=== PATIENT | female | born 1955 | race Caucasian/White ===

== ENCOUNTER 2017-08-02 17:48 | Inpatient (IN) | payer SELFPAY ==
[~2017-08-02] VITALS: Ht 162.6 cm; Wt 63.0 kg
[2017-08-02] MEDS ORDERED: ALBUTEROL SULF 2.5 MG/0.5ML(0.5%) NEB SOLN NEB ONE (18:30)
[2017-08-02] MEDS ORDERED: IPRATROPIUM BROM 0.5 MG/2.5ML INH SOL NEB ONE (18:30)
[2017-08-02 19:41] LABS: Basophils # (auto) 0.1 uL; Basophils % (auto) 0.8 % (0.0-2.0); Eosinophils # (auto) 0.1 uL; Eosinophils % (auto) 1.2 % (0.0-7.0); Hematocrit 47.3 % (36.0-46.0); Lymphocytes # (auto) 1.3 uL; Lymphocytes % (auto) 14.4 % (10.0-50.0); Mean Corpuscular Hemoglobin 27.2 pg (28.0-32.0); Mean Corpuscular Hgb Conc. 31.7 g/dL (32.0-36.0); Mean Corpuscular Volume 85.9 fL (80.0-100.0); Monocytes % (auto) 10.4 % (0.0-12.0); Neutrophils # (auto) 6.8 uL; Neutrophils % (auto) 73.2 % (37.0-80.0); Nucleated Red Blood Cells % 0.4 %; Platelet Count (auto) 201 10^3/uL (140-450); Red Blood Cells 5.51 10^6/uL (4.0-5.20); White Blood Cell 9.2 10^3/uL (4.4-10.8)
[2017-08-02 19:46] LABS: Calcium 7.5 mg/dL (8.5-10.1); Potassium 3.9 mmol/L (3.5-5.1)
[2017-08-02 19:49] LABS: BUN/Creatinine Ratio 14.3; Bilirubin, Total 1.2 mg/dL (0.2-1.0); Total Protein 7.5 g/dL (6.4-8.2)
[2017-08-02 21:32] LABS: Urine Bacteria MOD /hpf (None Seen); Urine Blood TRACE /uL (Negative); Urine Specific Gravity 1.011 (1.001-1.035); Urine WBC 27 /hpf (0 - 5)
[2017-08-03] VITALS (8 sets, daily range): BP systolic 114–131; BP diastolic 66–77
[2017-08-03] MEDS ORDERED: ONDANSETRON HCL 4 MG/2 ML VIAL IV PRN (02:30)
[2017-08-03] MEDS ORDERED: FUROSEMIDE 20 MG/2 ML VIAL IV ONE (02:30)
[2017-08-03] MEDS ORDERED: MORPHINE SULFATE 4 MG/ML SYR/VIAL IV PRN (02:30)
[2017-08-03] MEDS ORDERED: ACETAMINOPHEN 500 MG TAB PO PRN (02:30)
[2017-08-03] MEDS ORDERED: HYDROcodone-ACET 5/325MG TAB PO PRN (02:30)
[2017-08-03] MEDS ORDERED: NITROGLYCERIN 0.4 MG SL TAB SL PRN (02:30)
[2017-08-03] MEDS ORDERED: FUROSEMIDE 40 MG/4 ML VIAL IV ONE (02:45)
[2017-08-03] MEDS: AZITHROMYCIN 500MG/ 250ML 250 ML IV SCH (03:15)
[2017-08-03] MEDS: cefTRIAXone 1GM/10ml IVPUSH 10 ML IV SCH (03:15)
[2017-08-03 04:33] LABS: Basophils # (auto) 0 uL; Basophils % (auto) 0.5 % (0.0-2.0); Eosinophils # (auto) 0.1 uL; Eosinophils % (auto) 0.6 % (0.0-7.0); Hemoglobin 14.9 g/dL (12.2-16.2); Lymphocytes # (auto) 1.3 uL; Lymphocytes % (auto) 14.5 % (10.0-50.0); Mean Corpuscular Hemoglobin 26.8 pg (28.0-32.0); Mean Corpuscular Hgb Conc. 31.8 g/dL (32.0-36.0); Mean Corpuscular Volume 84.4 fL (80.0-100.0); Monocytes # (auto) 0.9 uL; Monocytes % (auto) 10.1 % (0.0-12.0); Neutrophils # (auto) 6.5 uL; Neutrophils % (auto) 74.3 % (37.0-80.0); Nucleated Red Blood Cells % 0.2 %; Platelet Count (auto) 210 10^3/uL (140-450); Red Blood Cells 5.57 10^6/uL (4.0-5.20); Red Cell Distribution Width 16.8 % (11.8-14.3); White Blood Cell 8.8 10^3/uL (4.4-10.8)
[2017-08-03 04:52] LABS: BUN/Creatinine Ratio 14.7; Potassium 3.6 mmol/L (3.5-5.1)
[2017-08-03] MEDS ORDERED: INFLUENZA QUAD 2017-2018 0.5 ML SYRG IM ONE (10:00)
[2017-08-03] MEDS ORDERED: PNEUMOCOCCAL VACC POLYS 25 MCG/0.5 ML VIAL IM ONE (10:00)
[2017-08-03] MEDS ORDERED: ALBUTEROL SULF 2.5 MG/0.5ML(0.5%) NEB SOLN NEB PRN (21:15)
[2017-08-04] VITALS (7 sets, daily range): BP systolic 100–117; BP diastolic 47–73
[2017-08-04] MEDS: ALBUTEROL SULF 2.5 MG/0.5ML(0.5%) NEB SOLN NEB SCH ×4 (02:13→19:38)
[2017-08-04] MEDS: IPRATROPIUM BROM 0.5 MG/2.5ML INH SOL NEB SCH ×4 (02:13→19:38)
[2017-08-04] MEDS: cefTRIAXone 1GM/10ml IVPUSH 10 ML IV SCH (03:13)
[2017-08-04] MEDS: AZITHROMYCIN 500MG/ 250ML 250 ML IV SCH (03:41)
[2017-08-04] MEDS: POTASSIUM CHL 20 Meq TABLET PO SCH ×2 (11:44→22:30)
[2017-08-04] MEDS: FUROSEMIDE 20 MG TAB PO SCH (11:44)
[2017-08-04] MEDS: LEVOFLOXACIN 500 MG TAB PO SCH (11:44)
[2017-08-05] MEDS: ALBUTEROL SULF 2.5 MG/0.5ML(0.5%) NEB SOLN NEB SCH ×4 (00:41→20:12)
[2017-08-05] MEDS: IPRATROPIUM BROM 0.5 MG/2.5ML INH SOL NEB SCH ×4 (00:41→20:12)
[2017-08-05] MEDS: cefTRIAXone 1GM/10ml IVPUSH 10 ML IV SCH (02:47)
[2017-08-05] MEDS: FUROSEMIDE 20 MG TAB PO SCH ×3 (05:48→18:08)
[2017-08-05 05:53] VITALS: BP 113/73
[2017-08-05 09:02] VITALS: BP 110/67
[2017-08-05] MEDS: POTASSIUM CHL 20 Meq TABLET PO SCH ×2 (11:40→21:36)
[2017-08-05] MEDS: LEVOFLOXACIN 500 MG TAB PO SCH (11:40)
[2017-08-05] MEDS: AZITHROMYCIN 250 MG TAB PO SCH (11:40)
[2017-08-05 12:03] VITALS: BP 101/48
[2017-08-05 16:01] VITALS: BP 110/50
[2017-08-05] MEDS ORDERED: ALBUTEROL SULF 2.5 MG/0.5ML(0.5%) NEB SOLN ONE (17:39)
[2017-08-05] MEDS ORDERED: IPRATROPIUM BROM 0.5 MG/2.5ML INH SOL ONE (17:39)
[2017-08-05 22:58] VITALS: BP 115/78
[2017-08-06] MEDS: ALBUTEROL SULF 2.5 MG/0.5ML(0.5%) NEB SOLN NEB SCH ×4 (01:06→18:36)
[2017-08-06] MEDS: IPRATROPIUM BROM 0.5 MG/2.5ML INH SOL NEB SCH ×4 (01:06→18:36)
[2017-08-06] MEDS: cefTRIAXone 1GM/10ml IVPUSH 10 ML IV SCH (03:14)
[2017-08-06 06:24] VITALS: BP 116/74
[2017-08-06] MEDS: FUROSEMIDE 20 MG TAB PO SCH ×2 (06:40→17:34)
[2017-08-06 07:54] VITALS: BP 111/57
[2017-08-06] MEDS: POTASSIUM CHL 20 Meq TABLET PO SCH ×2 (10:00→21:22)
[2017-08-06] MEDS: LEVOFLOXACIN 500 MG TAB PO SCH (10:01)
[2017-08-06] MEDS: AZITHROMYCIN 250 MG TAB PO SCH (10:01)
[2017-08-06 11:44] VITALS: BP 106/58
[2017-08-06 16:06] VITALS: BP 103/63
[2017-08-06] MEDS: BUDESONIDE (INHALATION) 0.5 MG/2 ML NEB NEB SCH (18:36)
[2017-08-07] MEDS: cefTRIAXone 1GM/10ml IVPUSH 10 ML IV SCH (03:00)
[2017-08-07] MEDS: FUROSEMIDE 20 MG TAB PO SCH ×2 (06:18→18:04)
[2017-08-07] MEDS: ALBUTEROL SULF 2.5 MG/0.5ML(0.5%) NEB SOLN NEB SCH ×4 (06:27→18:05)
[2017-08-07] MEDS: BUDESONIDE (INHALATION) 0.5 MG/2 ML NEB NEB SCH ×2 (06:27→18:05)
[2017-08-07] MEDS: IPRATROPIUM BROM 0.5 MG/2.5ML INH SOL NEB SCH ×4 (06:27→18:05)
[2017-08-07 08:43] VITALS: BP 101/75
[2017-08-07 09:00] VITALS: BP 102/48
[2017-08-07] MEDS: predniSONE 20 MG TAB PO SCH (09:55)
[2017-08-07] MEDS: LEVOFLOXACIN 500 MG TAB PO SCH (09:55)
[2017-08-07] MEDS: AZITHROMYCIN 250 MG TAB PO SCH (09:55)
[2017-08-07] MEDS: POTASSIUM CHL 20 Meq TABLET PO SCH ×2 (09:55→22:19)
[2017-08-07 13:13] VITALS: BP 108/50
[2017-08-07 17:00] VITALS: BP_SYST 110; BP_SYST 143; BP_DIAS 54; BP_DIAS 63
[2017-08-07 20:00] VITALS: BP 104/56
[2017-08-07 22:00] VITALS: BP 154/46
[2017-08-08] MEDS: cefTRIAXone 1GM/10ml IVPUSH 10 ML IV SCH (03:00)
[2017-08-08 05:17] VITALS: BP 86/43
[2017-08-08] MEDS: FUROSEMIDE 20 MG TAB PO SCH ×2 (06:19→17:40)
[2017-08-08] MEDS: ALBUTEROL SULF 2.5 MG/0.5ML(0.5%) NEB SOLN NEB SCH ×4 (07:43→18:53)
[2017-08-08] MEDS: BUDESONIDE (INHALATION) 0.5 MG/2 ML NEB NEB SCH ×2 (07:43→18:54)
[2017-08-08] MEDS: IPRATROPIUM BROM 0.5 MG/2.5ML INH SOL NEB SCH ×4 (07:43→18:53)
[2017-08-08 09:00] VITALS: BP 93/65
[2017-08-08] MEDS: POTASSIUM CHL 20 Meq TABLET PO SCH ×2 (09:57→21:24)
[2017-08-08] MEDS: predniSONE 20 MG TAB PO SCH (09:57)
[2017-08-08] MEDS: LEVOFLOXACIN 500 MG TAB PO SCH (09:58)
[2017-08-08] MEDS: AZITHROMYCIN 250 MG TAB PO SCH (09:58)
[2017-08-08 13:00] VITALS: BP 124/58
[2017-08-08 13:29] LABS: Calcium 8.8 mg/dL (8.5-10.1); Potassium 4.1 mmol/L (3.5-5.1)
[2017-08-08 16:59] VITALS: BP 110/57
[2017-08-08 23:43] VITALS: BP 114/44
[2017-08-09 04:42] VITALS: BP 105/68
[2017-08-09] MEDS: IPRATROPIUM BROM 0.5 MG/2.5ML INH SOL NEB SCH ×4 (05:42→19:18)
[2017-08-09] MEDS: ALBUTEROL SULF 2.5 MG/0.5ML(0.5%) NEB SOLN NEB SCH ×4 (05:42→19:18)
[2017-08-09] MEDS: FUROSEMIDE 20 MG TAB PO SCH ×2 (05:55→18:11)
[2017-08-09 08:44] VITALS: BP 98/53
[2017-08-09] MEDS: predniSONE 20 MG TAB PO SCH (10:05)
[2017-08-09] MEDS: LEVOFLOXACIN 500 MG TAB PO SCH (10:06)
[2017-08-09] MEDS: POTASSIUM CHL 20 Meq TABLET PO SCH ×2 (10:06→22:06)
[2017-08-09] MEDS: BUDESONIDE (INHALATION) 0.5 MG/2 ML NEB NEB SCH ×2 (10:28→19:18)
[2017-08-09 11:54] VITALS: BP 96/49
[2017-08-09 16:22] VITALS: BP 105/68
[2017-08-09 16:31] VITALS: BP 102/51
[2017-08-09 22:00] VITALS: BP 126/75
[2017-08-10 05:13] VITALS: BP 104/70
[2017-08-10] MEDS: FUROSEMIDE 20 MG TAB PO SCH ×2 (05:47→18:00)
[2017-08-10] MEDS: BUDESONIDE (INHALATION) 0.5 MG/2 ML NEB NEB SCH ×2 (07:28→19:50)
[2017-08-10] MEDS: IPRATROPIUM BROM 0.5 MG/2.5ML INH SOL NEB SCH ×4 (07:30→19:49)
[2017-08-10] MEDS: ALBUTEROL SULF 2.5 MG/0.5ML(0.5%) NEB SOLN NEB SCH ×4 (07:30→19:49)
[2017-08-10 08:42] VITALS: BP 104/70
[2017-08-10 09:00] VITALS: BP 113/64
[2017-08-10] MEDS: LEVOFLOXACIN 500 MG TAB PO SCH (10:05)
[2017-08-10] MEDS: predniSONE 20 MG TAB PO SCH (10:05)
[2017-08-10] MEDS: POTASSIUM CHL 20 Meq TABLET PO SCH ×2 (10:05→21:33)
[2017-08-10 13:00] VITALS: BP 108/60
[2017-08-10 17:25] VITALS: BP 101/48
[2017-08-10 21:30] VITALS: BP 136/96
[2017-08-11 05:00] VITALS: BP 115/66
[2017-08-11] MEDS: ALBUTEROL SULF 2.5 MG/0.5ML(0.5%) NEB SOLN NEB SCH ×3 (05:44→14:19)
[2017-08-11] MEDS: FUROSEMIDE 20 MG TAB PO SCH (05:44)
[2017-08-11] MEDS: IPRATROPIUM BROM 0.5 MG/2.5ML INH SOL NEB SCH ×3 (05:44→14:19)
[2017-08-11 08:00] VITALS: BP 119/82
[2017-08-11 09:00] VITALS: BP 119/82
[2017-08-11] MEDS: BUDESONIDE (INHALATION) 0.5 MG/2 ML NEB NEB SCH (09:36)
[2017-08-11] MEDS: POTASSIUM CHL 20 Meq TABLET PO SCH (09:42)
[2017-08-11] MEDS: predniSONE 20 MG TAB PO SCH (09:42)
[2017-08-11] MEDS: LEVOFLOXACIN 500 MG TAB PO SCH (09:43)
[2017-08-11 13:00] VITALS: BP 126/89
[2017-08-11 17:00] VITALS: BP 121/76
== END 2017-08-11 19:22 | disposition home or self-care (01) | DRG 190 ==
LOC: EDBD 17:48 → ER 17:51 → TELE 17:52 → TELE-CENTR 08-03 04:50 → CENTRAL 08-04 19:35 → TELE-CENTR 08-06 00:30
PROVIDERS: ADMIT Nurse Practitioner Family; ATTEND Internal Medicine Pulmonary Disease
DX: J44.1 Chronic obstructive pulmonary disease with (acute) exacerbation (principal); I50.33 Acute on chronic diastolic (congestive) heart failure; I27.20 Pulmonary hypertension, unspecified; E83.51 Hypocalcemia; Z99.81 Dependence on supplemental oxygen; E44.1 Mild protein-calorie malnutrition; N39.0 Urinary tract infection, site not specified; I11.0 Hypertensive heart disease with heart failure; F17.200 Nicotine dependence, unspecified, uncomplicated; R49.0 Dysphonia; E66.9 Obesity, unspecified; Z88.0 Allergy status to penicillin; Z68.23 Body mass index [BMI] 23.0-23.9, adult
CPT/HCPCS: 36415; 36600; 71010; 71046; 80048; 80053; 81001; 82805; 83605; 83880; 84484; 85025; 87086; 93005; 93306; 94640; 96374; 96375; J2405

== ENCOUNTER 2019-06-14 18:13 | Inpatient (IN) | payer MEDICAID ==
[~2019-06-14] VITALS: Ht 167.6 cm; Wt 74.0 kg
[2019-06-14] MEDS ORDERED: ONDANSETRON HCL 4 MG/2 ML VIAL ONE (18:28)
[2019-06-14] MEDS ORDERED: methylPREDNISolone SOD SUCC 125 MG/2 ML VL IV ONE (18:30)
[2019-06-14] MEDS ORDERED: IPRATROPIUM BROM 0.5 MG/2.5ML INH SOL NEB ONE (18:30)
[2019-06-14] MEDS ORDERED: ETOMIDATE (2MG/ML) 20ML VIAL IV ONE ×2 (18:33→18:45)
[2019-06-14] MEDS ORDERED: SUCCINYLCHOLINE CHLORIDE 20 MG/ML 10ML VIAL IV ONE ×2 (18:33→18:45)
[2019-06-14] MEDS ORDERED: NOREPINEPHRINE 8 MG/250ML KIT 250 ML IV ONE (18:36)
[2019-06-14] MEDS ORDERED: MIDAZOLAM DRIP 50 mg/50mL 50 ML IV ONE (18:36)
[2019-06-14] MEDS: NOREPINEPHRINE 8 MG/250ML KIT 250 ML IV SCH ×2 (18:45→23:16)
[2019-06-14] MEDS: MIDAZOLAM DRIP 50 mg/50mL 50 ML IV SCH ×2 (18:46→21:32)
[2019-06-14] MEDS ORDERED: DOPamine 1600MCG/ML D5W 250 ML IV ONE (18:57)
[2019-06-14] MEDS ORDERED: PHENYLEPHRINE INJ 20 MG in SODIUM CHL 0.9% 250 ML IV SCH (19:05)
[2019-06-14] MEDS: DOPamine 1600MCG/ML D5W 250 ML IV SCH (19:13)
[2019-06-14 19:15] LABS: Eosinophils % (auto) 1.1 % (0.0-7.0)
[2019-06-14 19:18] LABS: Basophils # (auto) 0.1 uL; Basophils % (auto) 0.9 % (0.0-2.0); Eosinophils # (auto) 0.1 uL; Hematocrit 28.8 % (36.0-46.0); Hemoglobin 8.8 g/dL (12.2-16.2); Lymphocytes # (auto) 1.3 uL; Lymphocytes % (auto) 11.5 % (10.0-50.0); Mean Corpuscular Hemoglobin 21.9 pg (28.0-32.0); Mean Corpuscular Hgb Conc. 30.4 g/dL (32.0-36.0); Mean Corpuscular Volume 71.8 fL (80.0-100.0); Monocytes # (auto) 1.3 uL; Monocytes % (auto) 11.8 % (0.0-12.0); Neutrophils # (auto) 8.4 uL; Neutrophils % (auto) 74.7 % (37.0-80.0); Nucleated Red Blood Cells % 2.2 %; Platelet Count (auto) 338 10^3/uL (140-450); Red Blood Cells 4.02 10^6/uL (4.0-5.20); White Blood Cell 11.2 10^3/uL (4.4-10.8)
[2019-06-14 19:21] LABS: Red Cell Distribution Width 26.7 % (11.8-14.3)
[2019-06-14 19:28] LABS: Albumin 2.4 g/dL (3.4-5.0); BUN/Creatinine Ratio 15.6; Calcium 7.8 mg/dL (8.5-10.1); Magnesium 2.5 mg/dL (1.6-2.6); Potassium 3.3 mmol/L (3.5-5.1)
[2019-06-14] MEDS ORDERED: ONDANSETRON HCL 4 MG/2 ML VIAL IV ONE (19:30)
[2019-06-14 19:31] LABS: Urine Bacteria NONE SEEN /hpf (None Seen); Urine Blood Negative /uL (Negative); Urine Specific Gravity 1.018 (1.001-1.035); Urine WBC 203 /hpf (0 - 5)
[2019-06-14 19:31] LABS: Bilirubin, Total 6.4 mg/dL (0.2-1.0); Total Protein 5.8 g/dL (6.4-8.2)
[2019-06-14 19:32] LABS: INR 2.43 (0.9-1.15); Partial Thromboplastin Time 49.2 sec (23.64-32.05)
[2019-06-14 19:33] LABS: Lactic Acid w/Reflex 4.2 mmol/L (0.4-2.0)
[2019-06-14] MEDS ORDERED: SODIUM CHLORIDE 0.9% 500 ML IV ONE (19:50)
[2019-06-14] MEDS ORDERED: cefTRIAXone 1GM/50ML D5W 50 ML IV ONE (20:00)
[2019-06-14] MEDS ORDERED: VANCOMYCIN PER PHARMACY 0 MG IV SCH (20:00)
[2019-06-14] MEDS ORDERED: VANCOMYCIN 1GM/250ML 250 ML IV ONE (20:15)
[2019-06-14 20:30] VITALS: BP 137/53
[2019-06-14] MEDS ORDERED: FUROSEMIDE 40 MG/4 ML VIAL IV ONE (21:15)
[2019-06-14 22:35] VITALS: BP 124/58
[2019-06-15] VITALS (67 sets, daily range): BP systolic 37–133; BP diastolic 12–78
[2019-06-15] MEDS: DOPamine 1600MCG/ML D5W 250 ML IV SCH (00:55)
[2019-06-15] MEDS ORDERED: ONDANSETRON HCL 4 MG/2 ML VIAL IV PRN (01:00)
[2019-06-15] MEDS ORDERED: MORPHINE SULF INJ 2 MG/ML SYRINGE 1ML IV PRN (01:00)
[2019-06-15] MEDS ORDERED: LEVOFLOXACIN 250MG 50 ML IV ONE (01:00)
[2019-06-15] MEDS ORDERED: NITROGLYCERIN 0.4 MG SL TAB SL PRN (01:00)
[2019-06-15] MEDS ORDERED: FUROSEMIDE 40 MG/4 ML VIAL IV ONE (01:15)
[2019-06-15] MEDS: MIDAZOLAM DRIP 50 mg/50mL 50 ML IV SCH (01:24)
[2019-06-15] MEDS ORDERED: VASOPRESSIN 20 UNIT/ML ONE ×2 (02:29)
[2019-06-15] MEDS: VASOPRESSIN 50 UNITS in D5W 5% 247.5 ML IV SCH (02:38)
[2019-06-15] MEDS: NOREPINEPHRINE 8 MG/250ML KIT 250 ML IV SCH (03:08)
[2019-06-15] MEDS ORDERED: PHENYLEPHRINE INJ 20 MG in D5W 5% 250 ML IV SCH (03:30)
[2019-06-15] MEDS ORDERED: ALBUMIN 5% 250 ML IV ONE ×2 (03:30→03:31)
--- NOTE | 2019-06-15 04:00 | NUR ---
PT. ARRIVED VIA GURNEY WITH FORMULA CLERK, BARREL DEDENTING MACHINE OPERATOR, AND X2 RT; PLACED ON BEDSIDE MONITOR AND SPO2 IS IN THE 40'S, RT AT BEDSIDE TROUBLESHOOTING VENTILATOR AND RESP. STATUS; SBP IS IN THE 80'S AND PT. ON MAX X3 PRESSORS-WILL OBTAIN ANOTHER PRESSOR; OGT CONNECTED TO LWIS AND DARK/JOHNSON GASTRIC CONTENT AND WILL CONTINUE TO MONITOR; CARO TO GRAVITY AND HAS 100ML URINE IN BAG-UNINFORMED IF CARO BAG DRAINED PRIOR TO TRANSFER SO WILL ACCOUNT FOR URINE THAT IS DURING MY SHIFT; SEE INTERVENTIONS FOR ASSESSMENT AND IV SPREADSHEET FOR GTTS; WILL CONT. TO MONITOR.
[2019-06-15] MEDS ORDERED: SODIUM CHLORIDE 0.9% 500 ML IV ONE ×2 (04:30→16:30)
[2019-06-15] MEDS: EPINEPHrine HCL 250 ML IV SCH (04:45)
--- NOTE | 2019-06-15 05:10 | NUR ---
NOC RT CONT. AT BEDSIDE PLACING PT. ON PC MODE PER RX AND WAITING TO SEE IF PT. TOLERATES.
[2019-06-15] MEDS ORDERED: VANCOMYCIN PER PHARMACY 0 MG IV SCH (05:15)
[2019-06-15] MEDS ORDERED: PHENYLEPHRINE IV 250 ML IV ONE ×2 (05:37→07:08)
[2019-06-15] MEDS ORDERED: IPRATROPIUM BROM 0.5 MG/2.5ML INH SOL NEB SCH (06:00)
[2019-06-15] MEDS ORDERED: ALBUTEROL SULF 2.5 MG/0.5ML(0.5%) NEB SOLN NEB SCH (06:00)
[2019-06-15 06:27] LABS: Eosinophils # (auto) 0 uL; Hemoglobin 9.4 g/dL (12.2-16.2); Monocytes # (auto) 0.9 uL
[2019-06-15 06:31] LABS: Basophils # (auto) 0.1 uL; Basophils % (auto) 0.4 % (0.0-2.0); Hematocrit 31.4 % (36.0-46.0); Lymphocytes % (auto) 5.2 % (10.0-50.0); Mean Corpuscular Hemoglobin 21.5 pg (28.0-32.0); Mean Corpuscular Hgb Conc. 29.9 g/dL (32.0-36.0); Mean Corpuscular Volume 72.1 fL (80.0-100.0); Monocytes % (auto) 4.4 % (0.0-12.0); Neutrophils # (auto) 17.8 uL; Nucleated Red Blood Cells % 1.7 %; Platelet Count (auto) 428 10^3/uL (140-450); Red Blood Cells 4.35 10^6/uL (4.0-5.20); White Blood Cell 19.8 10^3/uL (4.4-10.8)
[2019-06-15 06:36] LABS: INR 2.25 (0.9-1.15); Partial Thromboplastin Time 39.6 sec (23.64-32.05)
[2019-06-15 06:40] LABS: Red Cell Distribution Width 26.4 % (11.8-14.3)
[2019-06-15 06:43] LABS: BUN/Creatinine Ratio 15.6; Magnesium 2.5 mg/dL (1.6-2.6); Potassium 3.6 mmol/L (3.5-5.1)
--- NOTE | 2019-06-15 07:30 | NUR ---
PT. SPO2 IN 90'S AND CONT. ON PC MODE VENTILATION; REPORT GIVEN TO AM RN; VS STABLE AT THIS TIME.
[2019-06-15] MEDS: fentaNYL Drip 2500mCg/250mlNS 250 ML IV SCH (08:18)
--- NOTE | 2019-06-15 08:45 | NUR ---
VENT CHANGES MADE AT THIS TIME: R.T AT BEDSIDE PATIENT PLACED ON AC 14, 450 VT, 50% FIO2, PEEP +10. CHANGES MADE BY ARMANDO PEREZ. ABG TO BE TAKEN IN 1 HOUR. CONTINUE CARE.
[2019-06-15] MEDS: PHENYLEPHRINE INJ 40 MG in SODIUM CHL 0.9% 250 ML IV SCH (09:00)
--- NOTE | 2019-06-15 09:30 | NUR ---
A- LINE PLACEMENT AT THIS TIME COMPLETED BY Donn PEREZ,[facility] TECHNICAL ARCHITECT AT THIS TIME AT BEDSIDE. PLACED TO LEFT FEMORAL. WILL CONTINUE TO MONITOR BP AT THIS TIME. CONSENT SIGNED BY CHRIS AND DR. SOLORIO. CONTINUE CARE.
[2019-06-15] MEDS ORDERED: SODIUM BICARBONATE 50ML VIAL 50 ML in SOD CHL 0.45% 1,000 ML IV SCH ×2 (10:00→19:15)
--- NOTE | 2019-06-15 10:25 | NUR ---
DR. SOLORIO AT BEDSIDE: ORDERS MD UPDATED ON PT'S STATUS, LABS AND POC FOR TODAY. ORDERS GIVEN AND TO BE CARRIED OUT. WILL CONTINUE TO MONITOR.
[2019-06-15] MEDS ORDERED: PANTOPRAZOLE 40 MG/10 ML VIAL INJ IV ONE (10:45)
[2019-06-15 11:07] LABS: Alcohol, Urine < 3.0 mg/dL (0-5); Amphetamine Screen, Urine NEGATIVE (NEGATIVE); Barbiturate Scree,Urine NEGATIVE (NEGATIVE); Benzodiazephine Screen, Urine NEGATIVE (NEGATIVE); Cannabinoid Screen, Urine NEGATIVE (NEGATIVE); Cocaine Screen, Urine NEGATIVE (NEGATIVE); Opiate Scree,Urine NEGATIVE (NEGATIVE); Phencyclidine Screen, Urine NEGATIVE (NEGATIVE)
[2019-06-15] MEDS: MEROPENEM 1GM IVPB 100 ML IV SCH (12:21)
[2019-06-15 12:54] LABS: Albumin 2.8 g/dL (3.4-5.0)
[2019-06-15 12:58] LABS: Bilirubin, Direct 5.5 mg/dL (0-0.2); Bilirubin, Total 7.2 mg/dL (0.2-1.0); Total Protein 6.1 g/dL (6.4-8.2)
--- NOTE | 2019-06-15 13:00 | NUR ---
DR. ALANIZ AT BEDSIDE: NEPHRO CONSULT MD UPDATED ON PT'S STATUS, CURRENT GTTS AND URINE OUTPUT FOR TODAY. NO ORDERS GIVEN AT THIS TIME. WILL CONTINUE TO MONITOR PATIENT. CONTINUE CARE.
[2019-06-15] MEDS: ALBUTEROL SULF 2.5 MG/0.5ML(0.5%) NEB SOLN NEB SCH ×3 (14:01→22:15)
[2019-06-15] MEDS: IPRATROPIUM BROM 0.5 MG/2.5ML INH SOL NEB SCH ×3 (14:01→22:14)
[2019-06-15] MEDS: ALBUMIN 25% 100 ML IV SCH ×2 (16:00→23:48)
--- NOTE | 2019-06-15 16:00 | NUR ---
EKG TAKEN AT THIS TIME: CHANGE IN STATUS CURRENT HR 137. EKG PLACED IN CHART. WAITING FOR DR. SOLORIO TO CALL BACK. CONTINUE CARE. Addendum: 06/15/19 at 1628 by Makenna Ramos RN RENITA
--- NOTE | 2019-06-15 16:25 | NUR ---
ORDERS FROM DR. SOLORIO UPDATED DR. SOLORIO ON PT'S CURRENT HR 130'S, A.FIB PER EKG. ORDERS GIVEN TO GIVE 500 ML NS BOLUS X1 NOW IV. BOLUS STARTED. MD TO CALL BACK LATER ON TO CHECK ON PATIENT STATUS. INFORMED WEANED OFF EPI GTT TO HELP WITH HR AT THIS TIME.
--- NOTE | 2019-06-15 16:49 | NUR ---
Assessment Pt is a 64 yr old intubated female. Assessment conducted on the phone with son Julien Sanz at [phone]. Prior to admit, pt lives with her mom. Pt receives care giving with family friend Kaden who helps to cook and clean for them. Pt was ambulatory but was extremely weak after d/c after recent d/c from [facility]. Pt's son was unsure of current ADL functioning of the pt. Pt admitted due to "sudden collapse and seizures in the home." Pt's nurse stated that the pt has severe sepsis, and CHF exacerbation. Pt's son, Julien, stated that the Dr recently called to let the family know that the prognosis is not good. Julien and his family are coming to the hospital shortly. Pt receives SS income and does not have and AD on file. Further needs will be assessed closer to d/c. Addendum: 06/15/19 at 1657 by CEE LIMA SS Amended: Links added.
--- NOTE | 2019-06-15 19:10 | NUR ---
RICHARD DRAWN AND REPORTED TO COUNTRY SINGER CHRIS. PER COUNTRY SINGER HE WILL COME ASSESS PT.
--- NOTE | 2019-06-15 19:14 | NUR ---
PER MALE MODEL SALBINO INCREASE RR VENT RATE TO 20.
[2019-06-15] MEDS ORDERED: SODIUM BICARBONATE 8.4 % INJ 50ML VIAL IV ONE (19:15)
--- NOTE | 2019-06-15 19:44 | NUR ---
VENT ORDERS RECEIVED. AC 20 VT 500 +10 100% FIO2 PER AGRICULTURAL LOAN OFFICER CHRIS
[2019-06-15] MEDS ORDERED: SODIUM BICARBONATE 8.4% INJ 50ML SYRINGE ONE (19:48)
--- NOTE | 2019-06-15 20:00 | NUR ---
REPORT RECEIVED AND ASSUMED CARE; SEE INTERVENTIONS FOR ASSESSMENT; SEE IV SPREADSHEET FOR DRIPS; PT. HR IS IN THE 130'S AND IN A-FIB/A-FLUTTER; AWARE AND HAD RX'D AN NS BOLUS OF 500ML ABOUT 1 1/2 HRS AGO; PT. HAS AN SAMANTHA AND SBP WNL AND PT. ON MULTIPLE PRESSORS; WILL CONT. TO MONITOR.
[2019-06-15 20:36] LABS: BUN/Creatinine Ratio 17.2; Calcium 7.6 mg/dL (8.5-10.1); Potassium 4.9 mmol/L (3.5-5.1)
[2019-06-15] MEDS: PANTOPRAZOLE 40 MG/10 ML VIAL INJ IV SCH (22:24)
[2019-06-15] MEDS: LINEZOLID 600MG/300ML 300 ML IV SCH (22:25)
[2019-06-15] MEDS ORDERED: DIGOXIN (250MCG/ML) 2 ML AMPULE IV ONE (23:15)
[2019-06-16] VITALS (104 sets, daily range): BP systolic 33–219; BP diastolic 11–106
[2019-06-16] MEDS ORDERED: LEVOFLOXACIN 250MG 50 ML IV SCH
[2019-06-16] MEDS: MEROPENEM 1GM IVPB 100 ML IV SCH ×3 (00:20→22:46)
[2019-06-16] MEDS ORDERED: DIGOXIN (250MCG/ML) 2 ML AMPULE IV ONE (01:50)
[2019-06-16] MEDS: ALBUTEROL SULF 2.5 MG/0.5ML(0.5%) NEB SOLN NEB SCH ×6 (02:00→22:25)
[2019-06-16] MEDS: IPRATROPIUM BROM 0.5 MG/2.5ML INH SOL NEB SCH ×6 (02:11→22:25)
[2019-06-16 04:16] LABS: Hemoglobin 9.4 g/dL (12.2-16.2)
[2019-06-16 04:25] LABS: Mean Corpuscular Hemoglobin 21.9 pg (28.0-32.0); Mean Corpuscular Hgb Conc. 26.8 g/dL (32.0-36.0); Mean Corpuscular Volume 81.6 fL (80.0-100.0); Platelet Count (auto) 342 10^3/uL (140-450); Red Blood Cells 4.29 10^6/uL (4.0-5.20); White Blood Cell 22.4 10^3/uL (4.4-10.8)
[2019-06-16 04:35] LABS: Albumin 3.2 g/dL (3.4-5.0); Calcium 7.3 mg/dL (8.5-10.1)
[2019-06-16 04:40] LABS: BUN/Creatinine Ratio 17.3; Total Protein 6.8 g/dL (6.4-8.2)
[2019-06-16 04:42] LABS: Potassium 4.4 mmol/L (3.5-5.1)
[2019-06-16 04:50] LABS: Red Cell Distribution Width 27.1 % (11.8-14.3)
[2019-06-16 04:52] LABS: Basophils % (manual) 0 (0.0-2.0); Blast Cells 0; Eosinophils % (manual) 0 (0-7); Metamyelocytes % 0; Myelocytes % 0; Promyelocytes % 0; Reactive Lymphocytes 0
[2019-06-16 06:47] LABS: Band Neutrophils % (manual) 4; Lymphocytes % (manual) 9 (10.0-50.0); Monocytes % (manual) 9 (0-12)
--- NOTE | 2019-06-16 07:35 | NUR ---
ASSESS- PT. LYING IN BED ON VENT SIZE # 7.5 ET, 22 AT THE LIP, AC-20, TV-500, PEEP-10, FIO2-50%. LUNGS CLEAR UMAIR. INSPIRATORY AND EXPIRATORY. PT. HAS GAG/COUGH REFLEX. RESPONDS TO DEEP PAINFUL STIMULI. ON VERSED GTT. AT 15 MG./HR. AND FENTANYL GTT. AT 125 MCG. TLC RT. FEMORAL INTACT. A-LINE LT. FEMORAL INTACT. OGT TO LIS WITH COFFEE GROUND DRAINAGE. ABD. SOFT, FLAT. BOWEL SOUNDS ALL FOUR QUADRANTS. F/C TO GRAVITY WITH SM. AMOUNT CLEAR YELLOW URINE. RADIAL PULSES WEAK, PALPABLE UMAIR. WITH CAPILLARY REFILL > 3 SEC. HANDS AND FINGERS WITH MOTTLING UMAIR., SKIN COOL TO TOUCH. DORSALIS PEDAL PULSES WEAK, PALPABLE UMAIR. WITH CAPILLARY REFILL > 3 SEC. WITH MOTTLING TO FT. AND TOES UMAIR., SKIN COOL TO TOUCH. SKIN INTACT. NEOSYNEPHRINE GTT. AT 180 MCG., VASOPRESSIN GTT. AT 0.7 UNITS/MIN., LEVOPHED GTT. AT 30 MCG. SR, HR 90'S.
--- NOTE | 2019-06-16 07:40 | NUR ---
Called/paged ARMANDO WALTER called re: . Waiting for call back. Continue care.
[2019-06-16] MEDS ORDERED: SODIUM BICARBONATE 50ML VIAL 100 ML in SOD CHL 0.45% 1,000 ML IV SCH (07:45)
[2019-06-16] MEDS ORDERED: SODIUM BICARBONATE 8.4 % INJ 50ML VIAL IV ONE ×3 (07:45→19:45)
--- NOTE | 2019-06-16 07:45 | NUR ---
returned call ARMANDO WALTER returned call, updated on patient status and reason for call, orders received. Continue care.
[2019-06-16] MEDS ORDERED: SODIUM BICARBONATE 8.4% INJ 50ML SYRINGE ONE ×2 (07:47→10:40)
[2019-06-16] MEDS: VASOPRESSIN 50 UNITS in D5W 5% 247.5 ML IV SCH ×2 (08:00→12:01)
[2019-06-16] MEDS: EPINEPHrine HCL 250 ML IV SCH (08:00)
[2019-06-16] MEDS: fentaNYL Drip 2500mCg/250mlNS 250 ML IV SCH ×2 (08:00→16:15)
[2019-06-16] MEDS: ALBUMIN 25% 100 ML IV SCH ×2 (08:47→23:00)
--- NOTE | 2019-06-16 09:08 | NUR ---
DR. RIVAS Provider/Hospitalist at bedside. GAVE UPDATE ON PT. NEW ORDERS RECEIVED.
[2019-06-16] MEDS ORDERED: FUROSEMIDE 20 MG/2 ML VIAL IV ONE (09:15)
[2019-06-16] MEDS ORDERED: FUROSEMIDE INJECTION 250 MG in SODIUM CHL 0.9% 225 ML IV SCH (09:15)
[2019-06-16] MEDS: LINEZOLID 600MG/300ML 300 ML IV SCH ×2 (09:26→22:46)
[2019-06-16] MEDS: PANTOPRAZOLE 40 MG/10 ML VIAL INJ IV SCH ×2 (09:26→22:47)
--- NOTE | 2019-06-16 09:30 | NUR ---
DR. SOLORIO Provider/Hospitalist at bedside. GAVE UPDATE ON PT.
[2019-06-16] MEDS ORDERED: METOCLOPRAMIDE HCL 5MG/ml INJ 2ml VIAL IV ONE (10:00)
--- NOTE | 2019-06-16 10:30 | NUR ---
DR. ALANIZ Provider/Hospitalist at bedside. GAVE UPDATE ON PT. NEW ORDERS RECEIVED.
--- NOTE | 2019-06-16 11:00 | NUR ---
IV removal IV DC'd with sterile technique, catheter fully intact. Pressure dressing applied to site. Patient tolerated procedure well. Discharged with aftercare instructions per MD. NOTE: IV LT. EJ LEAKING.
--- NOTE | 2019-06-16 11:03 | NUR ---
IV removal IV DC'd with sterile technique, catheter fully intact. Pressure dressing applied to site. Patient tolerated procedure well. Discharged with aftercare instructions per MD. NOTE: IV LT. FOREARM NO LONGER FLUSHING.
[2019-06-16] MEDS: MIDAZOLAM DRIP 50 mg/50mL 50 ML IV SCH ×2 (11:07→14:49)
[2019-06-16 11:30] LABS: BUN/Creatinine Ratio 17.9; Calcium 6.7 mg/dL (8.5-10.1)
--- NOTE | 2019-06-16 11:30 | NUR ---
HR INCREASED TO [address] FROM 90'S SR. PT. IS ON LEVOPHED GTT. AT 30 MCG., VASOPRESSIN GTT. AT 0.07 UNITS/MIN., AND NEOSYNEPHRINE GTT. AT 160 MCG. MONITORING PT.
[2019-06-16] MEDS: PHENYLEPHRINE INJ 40 MG in SODIUM CHL 0.9% 250 ML IV SCH ×4 (11:34→21:03)
--- NOTE | 2019-06-16 12:00 | NUR ---
WOUND CARE NOTE: PATIENT ADMITTED TO [facility] WITH DIAGNOSIS OF ACUTE HYPOXIC RESPIRATORY FAILURE. PATIENT HAS CURRENT KIMBERLEY SCORE OF 12. SHE IS INTUBATED, SEDATED, ON MULTIPLE VASOPRESSORS. PT RESTING ON ICU BED. SHE HAS NO WOUNDS CURRENTLY. SKIN/WOUND CARE PLAN IMPLEMENTED. RECOMMEND: FREQUENT TURN SCHEDULE Q 2 HOURS, PRN CONDITION PERMITS, WITH PRESSURE REDISTRIBUTION USING PILLOWS/WEDGES, ELEVATION OF BOTH FEET/HEELS UP ONTO PILLOWS TO OFFLOAD PRESSURE, BID/PRN APPLICATION WITH MOISTURE BARRIER CREAM, OPTIFOAM GENTLE SACRAL DRESSING, DIETARY CONSULT, SKIN/WOUND CARE PLAN, CONTINUED MONITORING BY WOUND CARE TEAM.
--- NOTE | 2019-06-16 12:05 | NUR ---
PT. HR DECREASED TO 90'S ST FROM 140. A-LINE SBP 100'S. CONTINUING TO MONITOR VSS.
[2019-06-16] MEDS: NOREPINEPHRINE BITARTRATE 16 MG in D5W 5% 250 ML IV SCH ×2 (12:09→21:02)
--- NOTE | 2019-06-16 12:15 | NUR ---
Called/paged Dr. SOLOROI called re: . Waiting for call back. Continue care.
--- NOTE | 2019-06-16 12:20 | NUR ---
returned call Dr. SOLORIO returned call, updated on patient status and reason for call. Continue care.
[2019-06-16] MEDS: METOCLOPRAMIDE HCL 5MG/ml INJ 2ml VIAL IV SCH ×2 (13:49→22:46)
--- NOTE | 2019-06-16 15:30 | NUR ---
Called/paged Dr. SOLORIO called re: . Waiting for call back. Continue care.
--- NOTE | 2019-06-16 15:35 | NUR ---
returned call Dr. SOLORIO returned call, updated on patient status and reason for call. Continue care. DR. SOLORIO SAID SHE WILL BE HERE AT 8AM TOMORROW TO MEET WITH SON.
--- NOTE | 2019-06-16 17:55 | NUR ---
DR. ALANIZ CALLED. GAVE UPDATE ON PT. NEW ORDER RECEIVED TO Nael DAMIAN GTT.
[2019-06-16 18:33] LABS: BUN/Creatinine Ratio 18.6; Potassium 3.5 mmol/L (3.5-5.1)
--- NOTE | 2019-06-16 19:30 | NUR ---
Opening Shift Note Received pt on mechanical ventilator. Sedated on versed and fentanyl. No response from pt. Pt on Neosynephrine gtt, Levophed gtt, and Vasopressin gtt. See IV spreadsheet for details. Systolic blood pressure high 90's. Pt has arterial line to left femoral; zeroed with good wave form noted. TLC to right femoral. all ports patent with good blood return; see iv spreadsheet for details. 20 g to left AC; site benign. No redness or infiltration noted. OGT to LIS with coffee ground drainage. Rectal probe in reading 97.1. Warm blankets applied to pt and warming room up. Pt's hands are very cold to touch and mottled, bilateral feet also mottled and cold. Bilateral knees mottled. Very weak radial pulses palpated and weak dorsalis pedis pulses palpated. Capillary refill greater than 3 seconds. Pulse oximetry not reading properly despite multiple areas placed. Vuong catheter in place secure below bladder with very minimal urine output. All alarms on and audible. RT at bedside. Pt in full view of RN.
[2019-06-16 19:35] LABS: Calcium 5.2 mg/dL (8.5-10.1)
[2019-06-16] MEDS ORDERED: SODIUM BICARBONATE 50ML VIAL 150 ML in D5W 5% 1,000 ML IV ONE (19:45)
--- NOTE | 2019-06-16 19:45 | NUR ---
Spoke to MD musa about pt's critical lab values. New orders received will carry out through [facility] and obtain ABG after bicarb given.
--- NOTE | 2019-06-16 20:01 | NUR ---
Respiratory note: NOTIFIED BY RN, BICARB TO BE GIVEN PER DR. ALANIZ'S ORDER. WILL DRAW ABG 1 HOUR AFTER BICARB IS ADMINISTERED.
--- NOTE | 2019-06-16 21:00 | NUR ---
PT'S SYSTOLIC BLOOD PRESSURE IN 50'S. EPINEPHRINE GTT RESTARTED AT THIS TIME. PT CURRENTLY ON ALL 4 PRESSORS. FENTANYL AND VERSED TURNED OFF AT THIS TIME.
--- NOTE | 2019-06-16 21:19 | NUR ---
Respiratory note: ABG OBTAINED, RN TO NOTIFY HOSPITALIST OF RESULTS. FIO2 INCREASED TO 70% DUE TO DESATURATION. WILL CONTINUE TO MONITOR.
[2019-06-16 21:36] LABS: Lactic Acid w/Reflex 17.1 mmol/L (0.4-2.0)
--- NOTE | 2019-06-16 22:56 | NUR ---
PAGED HOSPITALIST FOR CRITICAL ABG RESULTS. NEW ORDERS RECEIVED. WILL CARRY OUT THROUGH [facility].
--- NOTE | 2019-06-16 23:30 | NUR ---
TALKED TO DR. ALANIZ REGARDING PT STATUS ABOUT BEING MAXED OUT ON 4 VASOPRESSORS AND SYSTOLIC PRESSURE IN THE 70'S WITH CRITICAL ABG RESULTS. NO NEW ORDERS AT THIS TIME. STATES TO CALL SON AND UPDATE HIM ON PT'S CRITICAL STATUS.
[2019-06-17] VITALS (109 sets, daily range): BP systolic 21–132; BP diastolic 15–57
[2019-06-17] MEDS: ALBUMIN 25% 100 ML IV SCH
--- NOTE | 2019-06-17 | NUR ---
PT WENT INTO SVT OF 154. HOSPITALIST NOTIFIED. NEW ORDERS RECEIVED.
[2019-06-17] MEDS ORDERED: DIGOXIN (250MCG/ML) 2 ML AMPULE ONE (00:06)
[2019-06-17] MEDS ORDERED: DIGOXIN (250MCG/ML) 2 ML AMPULE IV ONE (00:15)
--- NOTE | 2019-06-17 01:30 | NUR ---
PT'S SON AT BEDSIDE. EXPLAINED TO SON THE CRITICAL CONDITION OF THE PT. SON STATES HE WANTS EVERYTHING DONE AT THIS TIME BECAUSE THAT IS WHAT THE PT WOULD WANT.
[2019-06-17] MEDS: ALBUTEROL SULF 2.5 MG/0.5ML(0.5%) NEB SOLN NEB SCH ×6 (02:15→22:13)
[2019-06-17] MEDS: IPRATROPIUM BROM 0.5 MG/2.5ML INH SOL NEB SCH ×6 (02:15→22:13)
[2019-06-17] MEDS ORDERED: PHENYLEPHRINE HCL 10 MG/ML VL ONE (04:56)
[2019-06-17] MEDS: PHENYLEPHRINE INJ 40 MG in SODIUM CHL 0.9% 250 ML IV SCH ×5 (05:07→20:05)
[2019-06-17 05:11] LABS: Hemoglobin 8.6 g/dL (12.2-16.2); Mean Corpuscular Hemoglobin 21.6 pg (28.0-32.0); Mean Corpuscular Hgb Conc. 26.6 g/dL (32.0-36.0)
[2019-06-17 05:14] LABS: Hematocrit 32.4 % (36.0-46.0); Platelet Count (auto) 291 10^3/uL (140-450)
[2019-06-17 05:21] LABS: Albumin 2.7 g/dL (3.4-5.0); Calcium 6.4 mg/dL (8.5-10.1); Potassium 4.3 mmol/L (3.5-5.1)
[2019-06-17 05:27] LABS: BUN/Creatinine Ratio 16.2; Bilirubin, Total 6.9 mg/dL (0.2-1.0); Total Protein 5.1 g/dL (6.4-8.2)
[2019-06-17 05:35] LABS: Red Cell Distribution Width 26.5 % (11.8-14.3)
[2019-06-17 05:36] LABS: Basophils % (manual) 0 (0.0-2.0); Blast Cells 0; Eosinophils % (manual) 0 (0-7); Myelocytes % 0; Promyelocytes % 0; White Blood Cell 34.7 10^3/uL (4.4-10.8)
[2019-06-17] MEDS: METOCLOPRAMIDE HCL 5MG/ml INJ 2ml VIAL IV SCH ×3 (06:00→22:03)
--- NOTE | 2019-06-17 06:30 | NUR ---
ARMANDO Springer at bedside. new orders received for ABG stat.
[2019-06-17 06:35] LABS: Band Neutrophils % (manual) 15; Lymphocytes % (manual) 2 (10.0-50.0); Metamyelocytes % 1; Monocytes % (manual) 9 (0-12); Reactive Lymphocytes 1
--- NOTE | 2019-06-17 06:50 | NUR ---
PAGED ARMANDO WALTER FOR RESULTS OF ABG. NEW ORDERS RECEIVED FOR 2 AMPS OF BICARB AND CONTINUE THE BICARB GTT AT 150 MLS/HR.
[2019-06-17] MEDS ORDERED: SODIUM BICARBONATE 8.4 % INJ 50ML VIAL IV ONE ×3 (07:00→10:35)
--- NOTE | 2019-06-17 07:10 | NUR ---
DR RIVAS AT BEDSIDE. UPDATED ON PT'S CURRENT CONDITION. NEW ORDERS RECEIVED.
--- NOTE | 2019-06-17 07:50 | NUR ---
END OF SHIFT NOTE REPORT GIVEN TO KEVIN MOSES TO ASSUME CARE.
[2019-06-17] MEDS: SODIUM BICARBONATE 50ML VIAL 150 ML in D5W 5% 1,000 ML IV SCH ×2 (08:00→17:05)
[2019-06-17] MEDS: EPINEPHrine HCL 250 ML IV SCH ×2 (08:00→15:55)
--- NOTE | 2019-06-17 08:30 | NUR ---
DR SOLORIO AND AEROSPACE ASSEMBLER MET WITH PATIENT'S SON AT BEDSIDE - DISCUSSED PATIENT'S CURRENT CONDITION, PROGNOSIS AND TREATMENT OPTIONS INCLUSIVE OF CURRENT TREATMENT, CODE STATUS, TERMINAL WEAN OR HOSPICE. PATIENT'S SON VERBALIZED UNDERSTANDING OF PATIENT'S CRITICAL CONDITION AND TREATMENT OPTIONS - NO NEW ORDERS RECEIVED AT PRESENT - PATIENT CONTINUES ON 4 PRESSORS AND VENTILATOR SUPPORT - SEE IV SPREADSHEET, PHYSICAL ASSESSMENT SPREADSHEET AND VS FLOWSHEET. AEROSPACE ASSEMBLER CONTINUING TO MONITOR PATIENT'S CRITICAL CONDITION.
--- NOTE | 2019-06-17 08:45 | NUR ---
Left fem art line leveled and zeroed.
[2019-06-17] MEDS: LINEZOLID 600MG/300ML 300 ML IV SCH ×2 (09:05→22:04)
[2019-06-17] MEDS: PANTOPRAZOLE 40 MG/10 ML VIAL INJ IV SCH ×2 (09:05→22:03)
--- NOTE | 2019-06-17 10:35 | NUR ---
DR SOLORIO NOTIFIED OF BP 59//35 - ORDER RECEIVED. Addendum: 06/17/19 at 1206 by Mine Cedillo RN LASIX GTT STOPPED
--- NOTE | 2019-06-17 11:00 | NUR ---
DR ALANIZ VISITS AND EXAMINES PATIENT - DISCUSSES PATIENT CONDITION WITH POOL HALL INSPECTOR - NO NEW ORDERS RECEIVED AT PRESENT.
[2019-06-17] MEDS: MEROPENEM 1GM IVPB 100 ML IV SCH (11:30)
--- NOTE | 2019-06-17 11:45 | NUR ---
PATIENT'S FRIEND AT BEDSIDE VISITING - TEARFUL, SUPPORT GIVEN.
--- NOTE | 2019-06-17 11:55 | NUR ---
Nutrition consult/assessment Notes please see attached link for complete assessment Est. Needs based on BW (74 kg): 5560-4706 kcal (23-25 kcal/kgBW), 59-74 gms pro (0.8-1.0 gms/kgBW r/t elev RFT). Will continue to monitor pertinent labs and reassess nutrient need prn Addendum: 06/17/19 at [address] Amended: Links added.
--- NOTE | 2019-06-17 12:15 | NUR ---
PUPILS 6MM AND FIXED - DR SOLORIO NOTIFIED - NO NEW ORDERS RECEIVED.
[2019-06-17] MEDS: VASOPRESSIN 50 UNITS in D5W 5% 247.5 ML IV SCH (12:34)
[2019-06-17] MEDS: MIDAZOLAM DRIP 50 mg/50mL 50 ML IV SCH (12:34)
--- NOTE | 2019-06-17 13:15 | NUR ---
PATIENT'S SON SAMARA PHONES - UPDATED ON PATIENT CONDITION - VERBALIZES UNDERSTANDING. SON STATES HE IS MAKING ARRANGEMENTS.
[2019-06-17] MEDS: NOREPINEPHRINE BITARTRATE 16 MG in D5W 5% 250 ML IV SCH (16:25)
--- NOTE | 2019-06-17 16:45 | NUR ---
visits at bedside - no new orders received. Assessment unchanged.
--- NOTE | 2019-06-17 17:15 | NUR ---
Patient's son Julien phones - given update on patient's condition - verbalized understanding.
--- NOTE | 2019-06-17 18:45 | NUR ---
Patient's son and children visit - support offered.
--- NOTE | 2019-06-17 19:20 | NUR ---
Care endorsed to Aurora BROWN.
--- NOTE | 2019-06-17 19:30 | NUR ---
REPOSITIONING HELD THIS SHIFT DUE TO HEMODYNAMIC INSTABILITY.
--- NOTE | 2019-06-17 20:04 | NUR ---
FAMILY AT BEDSIDE: SON WITH HIS CHILDREN.
--- NOTE | 2019-06-17 20:30 | NUR ---
UNABLE TO OBTAIN PULSE-OX READING DESPITE MULTIPLE ATTEMPTS AND LOCATIONS
--- NOTE | 2019-06-17 20:30 | NUR ---
OPENING NOTE: INTUBATED, NO SEDATION. PUPILS 7-8 AND FIXED. NO MOVEMENT, COUGH AND GAG ABSENT. SINUS TACH WITH BBB, HR 100s. A-LINE AND NIBP IN THE 70s ON 4 VASOPRESSORS AT MAX RATE. EXTREME FACIAL SWELLING, INCLUDING SCLERAL EDEMA AND TONGUE. . 7.5 ETT, 22 AT THE LIP. LS CTA, DIMINISHED TO BASES. UNABLE TO OBTAIN PULSE OX READING. ABD DISTEND BUT SOFT. HYPOACTIVE BS. UNKNOWN LBM. CARO PATENT AND INTACT, DRAINING SONNY URINE WITH SEDIMENT. RIGHT FEMORAL CVC, CDI AND PATENT WITH BLOOD RETURN. LEFT FEMORAL A LINE, CDI, AND PATENT WITH BLOOD RETURN. SEE SKIN AND WOUND FLOWSHEET FOR ASSESSMENT. REINFORCED POC. MAINTAINED PATIENT SAFETY: BED LOCKED AND IN THE LOWEST POSITION, FREQUENT VISUAL CHECKS. WILL CONT CARE
--- NOTE | 2019-06-17 21:00 | NUR ---
SON AT BEDSIDE WITH HIS
--- NOTE | 2019-06-17 21:32 | NUR ---
SON SIGNED CODE STATUS FOR MODIFIED DNR
--- NOTE | 2019-06-17 22:04 | NUR ---
SON DECIDED TO WITHDRAWAL CARE - PAGED GROUP PROGRAM MANAGER HOSPITALIST
--- NOTE | 2019-06-17 22:17 | NUR ---
ALL VASOPRESSOR DRIPS STOPPED AT THIS TIME: SON REMAINS PRESENT AT BEDSIDE
--- NOTE | 2019-06-17 22:17 | NUR ---
CODE STATUS CHANGED TO DNR - COMFORT CARE
--- NOTE | 2019-06-17 22:36 | NUR ---
INFORMED PBX THAT PATIENT'S FAMILY IS REQUESTING [facility]) - PBX TO CONTACT
--- NOTE | 2019-06-17 22:47 | NUR ---
MICHAEL WALTER NP TO ASSESS PATIENT
--- NOTE | 2019-06-17 22:52 | NUR ---
Respiratory note: PT PRONOUNCED BY PROVIDER AT 2243 AND REMOVED FROM THE VENT AT THIS TIME
--- NOTE | 2019-06-17 22:53 | NUR ---
JOSE ANGEL VACUUM WORKER AT BEDSIDE
--- NOTE | 2019-06-17 23:04 | NUR ---
RELEASED BY [facility]
--- NOTE | 2019-06-17 23:08 | NUR ---
INITIAL CONTACT WITH [facility] - AWAITING CALL BACK
--- NOTE | 2019-06-17 23:50 | NUR ---
RELEASED BY FLIGHT ENGINEER INSTRUCTOR #[id number]
--- NOTE | 2019-06-17 23:57 | NUR ---
SPOKE WITH [facility] - ETA 60-90 MINUTES
--- NOTE | 2019-06-18 01:23 | NUR ---
PATIENT LEFT WITH [facility] REPRESENTATIVES
[2019-06-18] MEDS ORDERED: ATROPINE SULF 1 MG/10ml SYR IV ONE (12:48)
== END 2019-06-18 01:20 | disposition expired | DRG 720 ==
LOC: ER 18:13 → EDBD 18:13 → ICU WEST 18:14
PROVIDERS: ADMIT Nurse Practitioner; ATTEND Internal Medicine
PROC: 5A1945Z Respiratory Ventilation, 24-96 Consecutive Hours (ICD-10-PCS; principal; 2019-06-14)
PROC: 0BH17EZ Insertion of Endotracheal Airway into Trachea, Via Natural or Artificial Opening (ICD-10-PCS; 2019-06-14)
PROC: 06HY33Z Insertion of Infusion Device into Lower Vein, Percutaneous Approach (ICD-10-PCS; 2019-06-14)
PROC: 04HY32Z Insertion of Monitoring Device into Lower Artery, Percutaneous Approach (ICD-10-PCS; 2019-06-15)
DX: A41.9 Sepsis, unspecified organism (principal); I26.99 Other pulmonary embolism without acute cor pulmonale; J96.21 Acute and chronic respiratory failure with hypoxia; I21.A1 Myocardial infarction type 2; E43 Unspecified severe protein-calorie malnutrition; D68.9 Coagulation defect, unspecified; K72.00 Acute and subacute hepatic failure without coma; E87.1 Hypo-osmolality and hyponatremia; N17.0 Acute kidney failure with tubular necrosis; R65.21 Severe sepsis with septic shock; F19.10 Other psychoactive substance abuse, uncomplicated; R57.0 Cardiogenic shock; E87.2 Acidosis; I50.82 Biventricular heart failure; K74.60 Unspecified cirrhosis of liver; D50.9 Iron deficiency anemia, unspecified; N39.0 Urinary tract infection, site not specified; J98.11 Atelectasis; N18.9 Chronic kidney disease, unspecified; R00.1 Bradycardia, unspecified; I50.23 Acute on chronic systolic (congestive) heart failure; Z68.26 Body mass index [BMI] 26.0-26.9, adult; Z88.0 Allergy status to penicillin; Z86.711 Personal history of pulmonary embolism; Z71.51 Drug abuse counseling and surveillance of drug abuser; Z66 Do not resuscitate
CPT/HCPCS: 31500; 36415; 36600; 51702; 70450; 71045; 72170; 76705; 80048; 80053; 80076; 80202; 80307; 81001; 82805; 83605; 83735; 83880; 84484; 85007; 85025; 85027; 85379; 85610; 85730; 87040; 87070; 87077; 87081; 87086; 87088; 87186; 87205; 93005; 93306; 93970; 94002; 94003; 94640; 94660; 96361; 96365; 96367; 96375; 99291; C9113; G0378; J0171; J0330; J0696; J2185; J2250; J2405; J7060; P9047